=== PATIENT | male | born 1950 | race Caucasian/White ===

== ENCOUNTER → 2022-09-28 | Day surgery (SDC) | payer MEDICARE ==
[~2022-09-28] MED LIST: Fentanyl 100 MCG/2 ML VIAL ONE; Lidocaine 1% PF 5 ML VIAL ONE; Midazolam HCl 2 mg/2 ml Vial ONE; Sodium Bicarbonate 2.5 MEQ/5 ML VIAL ONE
[2022-09-28 10:14] LABS: Prothrombin Time 10.9 sec (9.5-12.1)
== END ==
LOC: CSHCT 09:10
PROVIDERS: ATTEND Internal Medicine Hematology & Oncology
DX: D53.9 Nutritional anemia, unspecified (principal); D72.818 Other decreased white blood cell count; E78.5 Hyperlipidemia, unspecified
CPT/HCPCS: 38222; 85097; 85610; 88184; 88185; 88237; 88264; 88280; 88305; 88311; 88313; 88341; 88342; J2250; J3010